=== PATIENT | male | born 1945 | race Caucasian/White ===

== ENCOUNTER → 2020-02-05 17:04 | Outpatient (CLI) | payer MEDICARE, SELFPAY ==
[2020-02-05 18:28] VITALS: BMI 38.6
[2020-02-05 18:30] LABS: Apearance,Urine Clear (Clear); Color,Urine Amber (Yellow)
[2020-02-05 18:31] LABS: Bilirubin,Urine 1+ (Negative); Blood, Urine Negative (Negative); Glucose,Urine (UA) Negative (Negative); Ketones,Urine Negative (Negative); PH,Urine 5.5 (5.0-8.5); Protein,Urine 2+ (Negative); UTC Leukocyte Esterase,Urine Negative (Negative); Urobilinogen,Urine 0.2 EU/dl (0.2)
[2020-02-05 18:32] LABS: UTC Nitrate,Urine Negative (Negative)
== END ==
PROVIDERS: PCP Family Medicine; Visit Provider Nurse Practitioner Family
DX: Z02.4 Encounter for examination for driving license (principal)
CPT/HCPCS: 81003

== ENCOUNTER → 2021-08-08 09:01 | Outpatient (CLI) | payer MEDICARE, SELFPAY | PROVIDERS: PCP Family Medicine; Visit Provider Nurse Practitioner Family | DX: Z02.4 Encounter for examination for driving license (principal) ==

== ENCOUNTER 2022-08-04 09:56 | Outpatient (CLI) | payer SELFPAY | END 2022-08-04 11:53 | disposition home or self-care (01) | PROVIDERS: PCP Internal Medicine; Visit Provider Nurse Practitioner Family | DX: Z02.4 Encounter for examination for driving license (principal) ==

== ENCOUNTER 2023-08-02 09:58 | Outpatient (CLI) | payer SELFPAY | END 2023-08-02 11:26 | disposition home or self-care (01) | PROVIDERS: PCP Internal Medicine; Visit Provider Nurse Practitioner Family | DX: Z02.4 Encounter for examination for driving license (principal) ==